=== PATIENT | male | born 1995 | race Hispanic/Latino ===

== ENCOUNTER 2018-04-24 10:34 | Emergency (ER) | payer BC ==
[2018-04-24] MEDS ORDERED: predniSONE 20 MG TAB ONE (11:02)
== END 2018-04-24 11:10 | disposition home or self-care (01) ==
LOC: BURERS 10:34
DX: S39.012A Strain of muscle, fascia and tendon of lower back, initial encounter (principal); X50.1XXA Overexertion from prolonged static or awkward postures, initial encounter; Y99.0 Civilian activity done for income or pay
CPT/HCPCS: 99283; J7506

== ENCOUNTER 2020-03-28 15:06 | Emergency (ER) | payer BC ==
[2020-03-28] MEDS ORDERED: Ibuprofen 200 MG TAB ONE (15:36)
--- NOTE | 2020-03-28 17:43 | RAD ---
LEFT KNEE FOUR VIEWS: 03/28/20 No fracture, dislocation, or joint space abnormality was seen. There does appear to be a joint effusi on, however, I cannot rule out an internal derangement. IMPRESSION: Small to medium sized joint effusion. POS: HOME
== END 2020-03-28 16:05 | disposition home or self-care (01) ==
LOC: BURERS 15:06
DX: S83.92XA Sprain of unspecified site of left knee, initial encounter (principal); W11.XXXA Fall on and from ladder, initial encounter

== ENCOUNTER 2020-06-30 19:25 | Emergency (ER) | payer BC ==
[2020-06-30] MEDS ORDERED: Lidocaine 1% PF 5 ML VIAL ONE ×2 (19:38)
[2020-06-30] MEDS ORDERED: Bacitracin 1 PK ONE (19:55)
== END 2020-06-30 19:55 | disposition home or self-care (01) ==
LOC: BURERS 19:25
DX: S51.812A Laceration without foreign body of left forearm, initial encounter (principal); W01.118A Fall on same level from slipping, tripping and stumbling with subsequent striking against other sharp object, initial encounter
CPT/HCPCS: 12002

== ENCOUNTER 2021-04-19 20:18 | Emergency (ER) | payer BC ==
[2021-04-19] MEDS ORDERED: Tetracaine 0.5% PF 4 ML BOT ONE (21:00)
[2021-04-19] MEDS ORDERED: Fluorescein Opthalmic Strip ONE (21:00)
[2021-04-19] MEDS ORDERED: Erythromycin Base 0.5% Ophth Oint 3.5 gm Tube ONE (21:10)
== END 2021-04-19 21:30 | disposition home or self-care (01) ==
LOC: BURERS 20:18
DX: S05.02XA Injury of conjunctiva and corneal abrasion without foreign body, left eye, initial encounter (principal); S05.01XA Injury of conjunctiva and corneal abrasion without foreign body, right eye, initial encounter; H10.9 Unspecified conjunctivitis; W22.8XXA Striking against or struck by other objects, initial encounter
CPT/HCPCS: 99282